=== PATIENT | male | born 1945 | race Caucasian/White ===

== ENCOUNTER 2018-09-24 12:46 | Outpatient (CLI) | payer MEDICARE ==
--- NOTE | 2018-09-24 13:12 | RAD ---
Exam: Chest 2 views HISTORY:Dyspnea Comparison: None FINDINGS: Lungs: Hyperinflated. No masses or consolidation. Cardiac silhouette: Normal size. Th ere is vascular calcification. Pulmonary vessels: Normal Pleural Spaces: Clear Pneumothorax: None Osseous abnormalities: None of acuity. IMPRESSION: COPD
== END 2018-09-24 12:47 | disposition home or self-care (01) ==
LOC: RAD 12:46
PROVIDERS: ATTEND Internal Medicine Pulmonary Disease
DX: R06.00 Dyspnea, unspecified (principal); J44.9 Chronic obstructive pulmonary disease, unspecified
CPT/HCPCS: 71046

== ENCOUNTER 2018-10-09 09:57 | Outpatient (CLI) | payer MEDICARE ==
--- NOTE | 2018-10-09 10:25 | ULT ---
US Abdominal Aorta: 10/09/2018 12:00 AM CLINICAL HISTORY: Encounter for abdominal aortic aneurysm screening. STUDY: Limited abdominal ultrasound of the aorta. TECHNIQUE: A limited ultrasound of the abdominal aorta was performed. Spectral analysis of the Dopple r waveform was performed. COMPARISON: None. FINDINGS: The aorta is normal in caliber without evidence of aneurysmal dilatation and measures 2.2 cm in great est dimension. The common iliac arteries are normal in caliber. IMPRESSION: No evidence of abdominal aortic aneurysm.
--- NOTE | 2018-10-10 18:18 | ULT ---
LOWER EXTREMITY ARTERIAL EVALUATION 10/09/18 HISTORY: Some sort of angioplasty procedure on his lower extremity. Examination of the right leg demonstrates reasonably normal waveforms at all levels with an ankle-arm index of 1.13. Left lower extremity demonstrates normal waveforms at all levels with an ankle-arm index of 1.16. This would be considered a normal resting arterial study of the lower extremities.
== END 2018-10-09 09:58 | disposition home or self-care (01) ==
LOC: ULT 09:57
PROVIDERS: ATTEND Family Medicine
DX: Z13.6 Encounter for screening for cardiovascular disorders (principal); I73.9 Peripheral vascular disease, unspecified
CPT/HCPCS: 76775; 93922

== ENCOUNTER 2019-07-27 22:56 | Emergency (ER) | payer MEDICARE ==
[2019-07-27 23:36] LABS: Hemoglobin 13.7 g/dL (14.0-18.0); Mean Corpuscular HGB CONC 30.9 g/dL (32.0-36.0); Mean Corpuscular Hemoglobin 30.9 pg (27.0-31.0); Mean Platelet Volume 6.9 fL (7.4-10.4); Platelet Count 253 thou/uL (130-400); RBC Distribution Width 12.1 % (11.5-14.5); Red Blood Cell (RBC) Count 4.43 mill/uL (4.70-6.10); White Blood Cell (WBC) Count 6.8 thou/uL (4.8-10.8)
[2019-07-27 23:51] LABS: ALT (SGPT) 16 U/L (8-55); AST (SGOT) 16 U/L (5-34); Albumin 3.9 g/dL (3.4-4.8); Alkaline Phosphatase 57 U/L (40-110); Anion Gap 14 mmol/L (10-20); BUN (Urea Nitrogen) 8 mg/dL (8.4-25.7); Bilirubin, Total 0.3 mg/dL (0.2-1.2); Calc. Creatinine Clearance 0 mL/min (70-130); Calcium 8.6 mg/dL (7.8-10.44); Carbon Dioxide 28 mmol/L (23-31); Chloride 96 mmol/L (98-107); Estimated GFR-MDRD Greater than 90; Globulin 2.5 g/dL (2.4-3.5); Glucose 97 mg/dL (83-110); Potassium 4.3 mmol/L (3.5-5.1); Protein, Total 6.4 g/dL (5.8-8.1); Sodium 134 mmol/L (136-145)
[2019-07-27 23:52] LABS: Band 8 % (5-11); Eosinophils 10 % (0-10); Lymphocytes 17 % (21-51); MDiff Complete? YES; Monocytes 15 % (0-10); Neutrophil 49 % (42-75)
[2019-07-28] MEDS ORDERED: Azithromycin 250 MG TAB ONE (01:46)
[2019-07-28] MEDS ORDERED: predniSONE 20 MG TAB ONE (01:46)
--- NOTE | 2019-07-28 12:35 | RAD ---
PORTABLE CHEST 1 VIEW: DATE: 07/28/2019. TIME: 1:14 AM. HISTORY: Shortness of breath. COMPARISON: 09/24/2018. FINDINGS: The heart size is normal. The aorta is tortuous. Changes of COPD are again seen. No lobar consolid ation, pneumothoraces, or pleural effusions are identified. The aorta is tortuous. IMPRESSION: No acute process. POS: [facility]
== END 2019-07-28 02:49 | disposition home or self-care (01) ==
LOC: ERS 22:56
DX: J44.1 Chronic obstructive pulmonary disease with (acute) exacerbation (principal); I25.2 Old myocardial infarction; I10 Essential (primary) hypertension
CPT/HCPCS: 36415; 71045; 80053; 84484; 85025; 93005; 94640; J7512; J7620